=== PATIENT | male | born 1945 | race Caucasian/White ===

== ENCOUNTER → 2016-10-20 | Day surgery (SDC) | payer OTHER ==
[~2016-10-20] MED LIST: BUPIVACAINE/EPINEPHRINE 0.25% 50 ML VIAL ONE; KETOROLAC TROMETHAMINE 30 MG/ML (IVP) VIAL IV PUSH ONE; LACTATED RINGER'S 1000 ML INJ 1,000 ML ONE; LIDOCAINE 1%/EPINEPHrine 1:100,000 SOLN 20 ML VIAL ONE; MIDAZOLAM HCL 2 MG/2 ML VIAL ONE; ONDANSETRON HCL 4 MG/2 ML VIAL IV PUSH ONE; PROPOFOL 200 MG/20 ML AMP IV ONE; ceFAZolin 2 GM PREMIX 50 ML ONE
--- NOTE | 2016-10-20 14:26 | TN ---
cc: ROBERT GRIGGS M.D. DATE OF SURGERY: 10/20/2016 PREOPERATIVE DIAGNOSIS Symptomatic right inguinal hernia. POSTOPERATIVE DIAGNOSIS Symptomatic right inguinal hernia. PROCEDURE Open repair right inguinal hernia with mesh, excision spermatic cord lipoma. SURGEON Dr. Robert Griggs. NEON PUMPER AMY Gaffney ANESTHESIA General. INDICATIONS This is a very pleasant 71-year-old gentleman who has had prior open left inguinal hernia repair with mesh, has developed a right inguinal hernia that is larger than his left one. He was desirous of operative repair. INTRAOPERATIVE FINDINGS Small to moderate-sized spermatic cord lipoma excised and discarded. Right indirect inguinal hernia sac excised and discarded. The surgical procedure was assisted by my nurse practitioner. My nurse practitioner's presence was necessary throughout this case for the exposure of the inguinal floor and hernia. My nurse practitioner assisted me through the duration of the procedure and her skill set was medically necessary to complete the procedure. During the surgical case, the science technician was working at the back table providing appropriate instrumentation to the nurse practitioner and me. The nurse practitioner was directly assisting me. DESCRIPTION OF PROCEDURE IN DETAIL The patient was identified as Kvng Carey, taken to the operating room and placed in the supine position. Sequential compression devices were placed on bilateral lower extremities. Following induction of adequate general anesthesia the right groin was prepped and draped in usual sterile fashion with Betadine. A proposed incision of the right groin was made with a marking pen. A time-out procedure was performed. Following completion of time-out procedure to everyone's satisfaction within the room, incision was carried out with a scalpel after instillation of local anesthetic. Incision continued through the subcutaneous fatty tissue and Zenaida's fascia to the level of the external oblique fascia using electrocautery. Electrocautery was used for hemostasis. Local anesthetic was placed beneath the external oblique fascial fibers. A split in the external oblique fascia was identified. This was extended to the external inguinal ring with a Metzenbaum scissor. No underlying ilioinguinal nerve branch was identified. The spermatic cord and its contents were from surrounding tissue to the level of pubic tubercle and isolated with a Cliff drain. Cremasteric fibers were divided with electrocautery. The obvious spermatic cord lipoma was reduced from surrounding cord structures to the level of the internal inguinal ring. It was cross-clamped with a hemostat. Redundant fatty tissue was amputated and it was suture ligated at its base with a 2-0 Vicryl suture ligature. The anterior medial surface of spermatic cord was examined. There was an obvious indirect inguinal hernia sac which was released from surrounding spermatic cord structures using combination of blunt dissection and electrocautery. The hernia sac was opened. Small amount of fatty tissue which was adherent within the sac was released with electrocautery and reduced into the peritoneal cavity. The base of the hernia sac was suture ligated with 2-0 Vicryl suture ligature and redundant sac amputated and discarded. The inguinal floor had some mild weakness. The inguinal floor was covered with a piece of atrium ProLite mesh which was cut from a 3 x 6 inch piece and customized in position to cover the inguinal floor. Sutures were placed to fasten the mesh with 0-Ethibond sutures above and below the pubic tubercle and to Fito's ligament and the shelving edge of the inguinal ligament and into the internal oblique fascia superiorly and medially. Tails were cut into the mesh to allow for passage of the spermatic cord. The tails were approximated lateral to the spermatic cord taking care not to strangle the spermatic cord with a single 0-Ethibond suture. The tails were tucked beneath the external oblique fascia laterally. The wound was irrigated copiously with saline. There was no evidence of bleeding. Remaining local anesthetic was placed in and around the spermatic cord and into the operative field. The external oblique fascia was then approximated with a running 2-0 Vicryl suture. 2-0 Vicryl as placed in Zenaida's fascia. Skin was approximated with a running 4-0 Monocryl subcuticular suture. Dressings were applied with Mastisol, half-inch brown Steri-Strips, gauze and Tegaderm completed the dressing. The patient tolerated the procedure without apparent complication. Sponge, needle and instrument counts were correct at the end of the case. MD RAFAEL Beltre/ANJU /2:00 PM /2:08 PM
== END | disposition home or self-care (01) ==
LOC: ESDC 11:38
PROVIDERS: ATTEND Surgery Trauma Surgery
DX: K40.90 Unilateral inguinal hernia, without obstruction or gangrene, not specified as recurrent (principal); D17.6 Benign lipomatous neoplasm of spermatic cord
CPT/HCPCS: 00830; 49505; 55520; C1781; J0690; J1885; J2250; J2405; J3010; J7120